=== PATIENT | female | born 1985 | race Caucasian/White ===

== ENCOUNTER 2019-02-18 12:17 | Inpatient (IN) | payer OTHER ==
[~2019-02-18] VITALS: Ht 167.6 cm; Wt 89.4 kg
[2019-03-13] MEDS ORDERED: PRENATAL TABLE1 EAC1 PO (18:46)
== END 2019-03-15 12:22 | disposition home or self-care (01) | DRG 807 ==
LOC: SURG 03-13 14:15 → OB/GYN 03-13 18:32 → LDR 03-13 18:32 → OB/GYN 03-13 23:31
PROVIDERS: ADMIT Obstetrics & Gynecology
PROC: 10E0XZZ Delivery of Products of Conception, External Approach (ICD-10-PCS; principal; 2019-03-13)
PROC: 0W8NXZZ Division of Female Perineum, External Approach (ICD-10-PCS; 2019-03-13)
PROC: 4A1HXCZ Monitoring of Products of Conception, Cardiac Rate, External Approach (ICD-10-PCS; 2019-03-13)
DX: O80 Encounter for full-term uncomplicated delivery (principal); Z37.0 Single live birth; Z3A.40 40 weeks gestation of pregnancy; Z22.330 Carrier of Group B streptococcus

== ENCOUNTER 2019-03-11 08:55 | Outpatient (CLI) | payer OTHER | END 2019-03-11 09:51 | disposition home or self-care (01) | LOC: NST 08:55 | DX: Z34.83 Encounter for supervision of other normal pregnancy, third trimester (principal) ==

== ENCOUNTER 2019-03-12 22:46 | Outpatient (CLI) | payer OTHER ==
[2019-03-13] MEDS ORDERED: PRENATAL TABLE1 EAC1 PO (18:46)
== END 2019-03-12 23:00 | disposition home or self-care (01) ==
LOC: NST 22:46 → OBS/DEL 22:46 → NST 23:00 → OBS/DEL 23:00
DX: Z36.89 Encounter for other specified antenatal screening (principal)